=== PATIENT | male | born 1955 | race Caucasian/White ===

== ENCOUNTER 2022-09-10 11:50 | Emergency (ER) | payer OTHER, SELFPAY ==
--- NOTE | ~2022-09-10 | XR_ITS ---
XR chest 2V DATE: 09/10/2022 13:44 INDICATION: Cough, fever, congestion TECHNIQUE: 2 views COMPARISON: None FINDINGS: Normal heart size. No hilar or mediastinal enlargement. No pulmonary infiltrate or consolidation, pleural effusion or pulmonary vascular congestion or pneumo thorax. IMPRESSION: No active cardiopulmonary disease Reviewed, dictated and finalized at location A. [employer] [employer] [employer]
[2022-09-10 11:56] VITALS: BP 156/85; PULSE 77; RESP 16; TEMP 36.6; O2SAT 99
--- NOTE | 2022-09-10 13:34 | ED.URI ---
HPI - URI/Sore Throat General Chief Complaint: Upper Respiratory Infection Stated Complaint: thinks pnuemonia Source: patient Mode of arrival: ambulatory Limitations: no limitations History of Present Illness HPI Narrative: 66-year-old male presents to urgent care with complaints of productive cough of green colored phlegm and chest tightness for the past 4 days. Patient has been taking [id number] aspirin and cold medication with minimal relief. Patient denies fevers, chills, shortness of breath, wheezing, nausea, vomiting or diarrhea. Patient is nonsmoker. MD elicited complaint: cough Onset (ago): day(s) (3) Treatments prior to arrival: cold medicine Related Data Home Medications Medication Instructions Recorded Confirmed alprazolam 0.25 mg tablet 0.25 mg PO DAILY 06/27/21 09/10/22 losartan 100 1 tablet PO DAILY 06/27/21 09/10/22 mg-hydrochlorothiazide 25 mg tablet zolpidem 5 mg tablet 5 mg PO QHS PRN Sleep 06/27/21 09/10/22 Allergies Allergy/AdvReac Type Severity Reaction Status Date / Time No Known Allergies Allergy Verified 09/10/22 13:24 Review of Systems Constitutional: Constitutional: Denies chills, Denies fatigue and Denies fever(s) ENT: Denies dizziness and Denies epistaxis Cardiovascular: Cardiovascular: Denies chest pain, Denies radiating jaw, neck or arm pain and Denies slow heart rate Respiratory: Respiratory: Reports chest congestion, Reports cough, Denies dyspnea and Denies wheezing Gastrointestinal: Gastrointestinal: Denies abdominal pain, Denies diarrhea, Denies nausea and Denies vomiting Integumentary/Breasts: Skin/Breast: Denies rash Allergic/Immunologic: Allergic/Immunologic: Denies lip swelling, Denies throat swelling, Denies tongue swelling and Denies wheezing [facility] Family History Family History Father Diabetes mellitus Hypertension Depression Heart disease Cerebrovascular accident Mother Asthma Hypertension Depression Heart disease Cerebrovascular accident Sibling Diabetes mellitus Other Asthma Social History Social History Smoking status: Never smoker Alcohol intake: never Substance use: never Substance use type: does not use Comments At time of signature, I agree with nursing past medical, surgical, social and family history. There is no relevant family history pertinent to the presenting complaint. Exam Const: General: healthy appearing, no acute distress and alert Nutritional Appearance: well nourished Orientation/consciousness: patient oriented x3 Limitations: no limitations HENMT: Head: normal to inspection Ears: external ears normal Face/Nose/Sinus: Normal external nose present Face and sinus: normal facial exam and sinuses nontender Teeth and gingiva: dentition normal Throat: posterior oropharynx normal Neck: Neck: normal visual inspection Resp: Effort & Inspection: normal respiratory effort and not labored Auscultation: clear to auscultation bilaterally, no crackles, no rales and no rhonchi Cardio: Rate: regular rate Rhythm: regular rhythm Heart sounds: no murmurs Skin: General skin exam: normal color Rashes: no rashes Wounds: no wounds Neuro: General: patient oriented x3 Speech: normal speech Gait exam (Neuro): Normal gait present Psych: Affect: normal affect Attitude: cooperative Course Course Level of Care: Express Care Visit Vital Signs Vital signs: Vital Signs Temperature 36.6 C 09/10/22 11:56 Pulse Rate 77 09/10/22 11:56 Respiratory Rate 16 09/10/22 11:56 Blood Pressure 156/85 H 09/10/22 11:56 Pulse Oximetry 99 09/10/22 11:56 Oxygen Delivery Room Air 09/10/22 11:56 Temperature 36.6 C 09/10/22 11:56 Pulse Rate 77 09/10/22 11:56 Respiratory Rate 16 09/10/22 11:56 Blood Pressure 156/85 H 09/10/22 11:56 Pulse Oximetry 99 09/10/22 11:56 Oxygen Delivery
== END 2022-09-10 14:10 | disposition home or self-care (01) ==
PROVIDERS: Emergency Provider Nurse Practitioner Family; PCP Family Medicine
DX: J06.9 Acute upper respiratory infection, unspecified (principal); Z20.822 Contact with and (suspected) exposure to COVID-19; I10 Essential (primary) hypertension; F41.9 Anxiety disorder, unspecified; Z96.651 Presence of right artificial knee joint
CPT/HCPCS: 71046; 87426; 87804; 99213; C9803; G0463